=== PATIENT | male | born 1985 | race Caucasian/White ===

== ENCOUNTER 2021-09-08 13:20 | Emergency (ER) | payer MEDICAID, OTHER ==
[~2021-09-08] VITALS: Ht 172.7 cm; Wt 118.4 kg
[2021-09-08 13:22] VITALS: BP 154/99
--- NOTE | 2021-09-08 13:30 | NUR ---
PATIENT PLACED ON BEDSIDE MONITOR, SAFETY MEASURES PUT INTO PLACE.
--- NOTE | 2021-09-08 13:31 | NUR ---
EMT PERFORMING EKG AT BEDSIDE.
--- NOTE | 2021-09-08 13:33 | NUR ---
BILL WELDON AT THE BEDSIDE
--- NOTE | 2021-09-08 13:34 | NUR ---
PATIENT PRESENTS TO ED WITH CHEST PAIN . PT STATES WOKE UP WITH PAIN 2 DAYS AGO,TOOK 2 EXCEDRIN. DENIES N/V/D; SKIN IS PINK/WARM/DRY; AAOX4 WITH EVEN AND STEADY GAIT; LUNGS CLEAR BL; HR EVEN AND REGULAR; PT DENIES ANY FEVER, SOB, OR COUGH AT THIS TIME; PATIENT STATES PAIN OF 4/10 AT THIS TIME; VSS; PATIENT POSITIONED FOR COMFORT; HOB ELEVATED; BEDRAILS UP X1; BED DOWN. ER MD MADE AWARE OF PT STATUS. HX OF HYPERTENSION, NO MEDICATIONS TAKEN. NO SURGICAL HISTORY. PT DENIES ALLERGIES TO MEDICATION.
--- NOTE | 2021-09-08 13:53 | NUR ---
LAB AT THE BEDSIDE
--- NOTE | 2021-09-08 13:53 | NUR ---
EMILY GIVEN TO DUTCH CULVER
--- NOTE | 2021-09-08 14:06 | NUR ---
X-Ray at bedside.
--- NOTE | 2021-09-08 14:07 | NUR ---
Lorenzo pennington in [facility] - 09/08/21 at 1407 by [email or web address] AIRAMAY AT BEDSIDE
[2021-09-08 14:21] LABS: BASOPHILS # (AUTO) 0.1 K/uL (0.00-0.22); BASOPHILS % (AUTO) 0.7 % (0.0-2.0); EOSINOPHILS % (AUTO) 0.4 % (0.0-4.0); HEMATOCRIT 47.7 % (36-52); HEMOGLOBIN 16.4 g/dL (12.0-18.0); LYMPHOCYTES # (AUTO) 2.6 K/uL (2.0-11.5); LYMPHOCYTES % (AUTO) 26.4 % (20.5-51.1); MEAN CORPUSCULAR HEMOGLOBIN 29 pg (27-31); MEAN CORPUSCULAR HGB CONC 34 g/dL (33-37); MEAN CORPUSCULAR VOLUME 84.6 fL (80-94); MONOCYTES # (AUTO) 0.9 K/uL (0.8-1.0); MONOCYTES % (AUTO) 9.3 % (1.7-9.3); NEUTROPHILS # (AUTO) 6.2 K/uL (1.8-7.7); NEUTROPHILS % (AUTO) 63.2 % (42.2-75.2); PLATELET COUNT (AUTO) 289 K/uL (140-450); RED BLOOD CELL COUNT(AUTO) 5.64 MIL/uL (4.20-6.10); WHITE BLOOD COUNT (AUTO) 9.7 K/uL (4.8-10.8)
[2021-09-08 14:42] LABS: ANION GAP 12.8 (8-16); CARBON DIOXIDE 28.3 mmol/L (21-32); CREATININE 1.1 mg/dL (0.6-1.3); POTASSIUM 4.1 mmol/L (3.5-5.1); TOTAL BILIRUBIN 0.7 mg/dL (0.0-1.0)
--- NOTE | 2021-09-08 15:07 | NUR ---
Patient appears to be resting comfortably in bed. Vital Signs within normal limits. Respirations even and unlabored.
--- NOTE | 2021-09-08 15:20 | NUR ---
DR. SAMUEL AT THE BEDSIDE
[2021-09-08] MEDS ORDERED: PRED20TA5 PO (15:27)
[2021-09-08 15:48] VITALS: BP 154/99
== END 2021-09-08 15:50 | disposition home or self-care (01) ==
LOC: MED 13:20
DX: J21.9 Acute bronchiolitis, unspecified (principal); R07.89 Other chest pain; Z20.822 Contact with and (suspected) exposure to COVID-19
CPT/HCPCS: 36415; 71045; 80053; 83690; 83880; 84484; 85025; 93005; 99285